=== PATIENT | female | born 1965 | race Caucasian/White ===

== ENCOUNTER 2021-02-14 14:41 | Inpatient (IN) | payer BC, OTHER ==
--- NOTE | 2021-02-14 15:03 | EDM.PDOC ---
ED HPI GENERAL MEDICAL PROBLEM - General Chief Complaint: Cardiovascular Problem Stated Complaint: HEART RACING Time Seen by Provider: 02/14/21 14:52 Source of Information: Reports: Patient, RN Notes Reviewed - History of Present Illness INITIAL COMMENTS - FREE TEXT/NARRATIVE: 55 yr old female comes in with palpitations, rapid heart rate, recurrent a fib. 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 Mild dizziness standing. No chest pain other than the discomfort of the noticeable palpitations. Not currently on blood thinners. Has not recently been ill. - Related Data Allergies Allergy/AdvReac Type Severity Reaction Status Date / Time No Known Allergies Allergy Verified 02/14/21 14:49 Home Meds: Home Meds Lisinopril [Prinivil] 2.5 mg PO DAILY 07/07/15 [History] Simvastatin 40 mg PO DAILY 07/07/15 [History] metFORMIN HCl [Metformin HCl ER] 750 mg PO BID 07/07/15 [History] Aspirin 325 mg PO DAILY 02/14/21 [History] Past Medical History Cardiovascular History: Reports: Afib, High Cholesterol Respiratory History: Reports: None Gastrointestinal History: Reports: None Genitourinary History: Reports: Other (See Below) Other Genitourinary History: TAKES LISINOPRIL DAILY FOR RENAL HEALTH 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: Reports: Musculoskeletal History: Reports: None Neurological History: Reports: None Psychiatric History: Reports: None Endocrine/Metabolic History: Reports: Diabetes, Type II Hematologic History: Reports: None Immunologic History: Reports: None Oncologic (Cancer) History: Reports: None Dermatologic History: Reports: None - Infectious Disease History Infectious Disease History: Reports: Chicken Pox, Measles, Mumps - Past Surgical History Head Surgeries/Procedures: Reports: None HEENT Surgical History: Reports: Tonsillectomy Respiratory Surgical History: Reports: None GI Surgical History: Reports: None Female Surgical History: Reports: Tubal Ligation Endocrine Surgical History: Reports: None Neurological Surgical History: Reports: None Musculoskeletal Surgical History: Reports: None Oncologic Surgical History: Reports: None Dermatological Surgical History: Reports: None Social & Family History - Tobacco Use Tobacco Use Status *Q: Never Tobacco User ED ROS GENERAL - Review of Systems Review Of Systems: See Below Constitutional: Denies: Fever, Chills HEENT: Reports: No Symptoms Respiratory: Denies: Shortness of Breath, Pleuritic Chest Pain, Cough Cardiovascular: Reports: Palpitations. Denies: Chest Pain GI/Abdominal: Denies: Abdominal Pain, Nausea, Vomiting Musculoskeletal: Reports: No Symptoms Skin: Reports: No Symptoms Neurological: Reports: Dizziness (mild) ED EXAM, GENERAL - Physical Exam Exam: See Below General Appearance: Alert, No Apparent Distress Throat/Mouth: Normal Inspection Head: Atraumatic Neck: Supple Respiratory/Chest: No Respiratory Distress, Lungs Clear, Normal Breath Sounds Cardiovascular: Tachycardia, Irregularly Irregular GI/Abdominal: Soft, Non-Tender Extremities: Normal Inspection. No: Pedal Edema, Leg Pain Neurological: Alert, Oriented, No Motor/Sensory Deficits Skin Exam: Warm, Dry, Normal Color Course - Vital Signs Last Recorded V/S: Last Vital Signs Temp 97.5 F 02/14/21 14:50 Pulse 170 H 02/14/21 14:50 Resp 18 02/14/21 14:50 BP 109/81 02/14/21 14:50 Pulse Ox 98 02/14/21 14:50 - Orders/Labs/Meds Orders: Active Orders 24 hr Category Date Time Status Peripheral IV Care [RC] . DIRECTED Care 02/14/21 15:09 Active CORONAVIRUS COVID-19 BRENDAN [MOLEC] Stat Lab 02/14/21 14:49 Received Diltiazem [Cardizem] 100 mg Med 02/14/21 16:15 Active Sodium Chloride 0.9% [Normal Saline AdvBag] 100 ml IV TITRATE Sodium Chloride 0.9% [Normal Saline] 1,000 ml Med 02/14/21 16:15 Active IV ONETIME Sodium Chloride 0.9% [Saline Flush] Med 02/14/21 15:09 Active 10 ml FLUSH ASDIRECTED PRN Peripheral IV Insertion Adult [OM.PC] Stat Oth 02/14/21 15:09 Ordered Medication Orders Sodium Chloride (Normal Saline) 1,000 mls @ 999 mls/hr IV ONETIME BERTA Last Admin: 02/14/21 16:26 Dose: 999 mls/hr Documented by: ROSEY Diltiazem HCl 100 mg/ Sodium (Chloride) 100 mls @ 5 mls/hr IV TITRATE BERTA; Protocol Last Admin: 02/14/21 16:25 Dose: 5 mg/hr, 5 mls/hr Documented by: ROSEY Sodium Chloride (Sodium Chloride 0.9% 10 Ml Syringe) 10 ml FLUSH ASDIRECTED PRN PRN Reason: Keep Vein Open Last Admin: 02/14/21 15:17 Dose: 10 ml Documented by: ROSEY Labs: Laboratory Tests 02/14/21 02/14/21 Range/Units 14:50 14:50 WBC 9.03 (3.98-10.04) K/mm3 RBC 4.59 (3.98-5.22) M/mm3 Hgb 14.5 (11.2-15.7) gm/dl Hct 43.5 (34.1-44.9) % MCV 94.8 (79.4-94.8) fl MCH 31.6 (25.6-32.2) pg MCHC 33.3 (32.2-35.5) g/dl RDW Std Deviation 44.8 (36.4-46.3) fL Plt Count 306 (182-369) K/mm3 MPV 11.9 (9.4-12.3) fl Neut % (Auto) 54.2 (34.0-71.1) % Lymph % (Auto) 37.3 (19.3-51.7) % [place] % (Auto) 7.3 (4.7-12.5) % Eos % (Auto) 0.9 (0.7-5.8) Baso % (Auto) 0.2 (0.1-1.2) % Neut # (Auto) 4.89 (1.56-6.13) K/mm3 Lymph # (Auto) 3.37 (1.18-3.74) K/mm3 [place] # (Auto) 0.66 H (0.24-0.36) K/mm3 Eos # (Auto) 0.08 (0.04-0.36) K/mm3 Baso # (Auto) 0.02 (0.01-0.08) K/mm3 Sodium 138 (136-145) mEq/L Potassium 3.6 (3.5-5.1) mEq/L Chloride 101 (98-107) mEq/L Carbon Dioxide 23 (21-32) mEq/L Anion Gap 17.6 H (5-15) BUN 15 (7-18) mg/dL Creatinine 1.2 H (0.55-1.02) mg/dL Est Cr Clr Drug Dosing 46.54 mL/min Estimated GFR (MDRD) 46 (>60) mL/min BUN/Creatinine Ratio 12.5 L (14-18) Glucose 211 H (70-99) mg/dL Calcium 9.5 (8.5-10.1) mg/dL Total Bilirubin 0.4 (0.2-1.0) mg/dL AST 18 (15-37) U/L ALT 22 (14-59) U/L Alkaline Phosphatase 68 (46-116) U/L Total Protein 8.3 H (6.4-8.2) g/dl Albumin 4.3 (3.4-5.0) g/dl Globulin 4.0 gm/dL Albumin/Globulin Ratio 1.1 (1-2) Meds: Medications Generic Name Dose Route Start Last Admin Trade Name Freq PRN Reason Stop Dose Admin Sodium Chloride 1,000 mls @ 999 mls/hr 02/14/21 16:15 02/14/21 16:26 Normal Saline IV 999 mls/hr ONETIME BERTA Administration Diltiazem HCl 100 mg/ Sodium 100 mls @ 5 mls/hr 02/14/21 16:15 02/14/21 16:25 Chloride IV 5 mg/hr TITRATE BERTA 5 mls/hr Administration Protocol 5 MG/HR Sodium Chloride 10 ml 02/14/21 15:09 02/14/21 15:17 Sodium Chloride 0.9% 10 Ml Syringe FLUSH 10 ml ASDIRECTED PRN Administration Keep Vein Open Discontinued Medications Generic Name Dose Route Start Last Admin Trade Name Freq PRN Reason Stop Dose Admin Diltiazem HCl 20 mg 02/14/21 15:10 02/14/21 15:15 Diltiazem 50 Mg/10 Ml Sdv IVPUSH 02/14/21 15:11 20 mg ONETIME ONE Administration Diltiazem HCl 10 mg 02/14/21 16:11 02/14/21 16:26 Diltiazem 50 Mg/10 Ml Sdv IVPUSH 02/14/21 16:12 10 mg ONETIME ONE Administration - Re-Assessments/Exams Free Text/Narrative Re-Assessment/Exam: 02/14/21 17:33. rate has slowed to the 110 to 125 rate after 30 mg diltiazem IV, pt now on diltiazem drip. CXR is normal. anion gap mildly elevated. Have ordered 1 liter LR. Pt will be admitted for further treatment. Departure - Departure Time of Disposition: 17:30 Disposition: Admitted As Inpatient 64 Condition: Fair Clinical Impression: Atrial fibrillation with RVR Referrals: PCP,Not In Area [Primary Care Provider] - Forms: ED Department Discharge Sepsis Event Note (ED) - Evaluation Sepsis Screening Result: No Definite Risk - Focused Exam Vital Signs: Vital Signs Temp Pulse Resp BP Pulse Ox 02/14/21 14:50 97.5 F 170 H 18 109/81 98 ED Communication - Discussed Case With (1) Discussed Case With (1): Admitting Provider (Dr Johnson, decision to admit at about 17:30) - My Orders Last 24 Hours: My Active Orders 02/14/21 14:49 CORONAVIRUS COVID-19 BRENDAN [MOLEC] Stat 02/14/21 15:09 Peripheral IV Care [RC] . DIRECTED Sodium Chloride 0.9% [Saline Flush] 10 ml FLUSH ASDIRECTED PRN Peripheral IV Insertion Adult [OM.PC] Stat 02/14/21 16:15 Diltiazem [Cardizem] 100 mg Sodium Chloride 0.9% [Normal Saline AdvBag] 100 ml IV TITRATE Sodium Chloride 0.9% [Normal Saline] 1,000 ml IV ONETIME - Assessment/Plan Last 24 Hours: My Active Orders 02/14/21 14:49 CORONAVIRUS COVID-19 BRENDAN [MOLEC] Stat 02/14/21 15:09 Peripheral IV Care [RC] . DIRECTED Sodium Chloride 0.9% [Saline Flush] 10 ml FLUSH ASDIRECTED PRN Peripheral IV Insertion Adult [OM.PC] Stat 02/14/21 16:15 Diltiazem [Cardizem] 100 mg Sodium Chloride 0.9% [Normal Saline AdvBag] 100 ml IV TITRATE Sodium Chloride 0.9% [Normal Saline] 1,000 ml IV ONETIME
[2021-02-14] MEDS ORDERED: Sodium Chloride 0.9% 10 ML Syringe FLUSH PRN (15:09)
[2021-02-14] MEDS ORDERED: Diltiazem 50 MG/10 ML SDV IVPUSH ONE ×2 (15:10→16:11)
[2021-02-14] MEDS ORDERED: Sodium Chloride 0.9% 1,000 ML IV SCH (16:15)
[2021-02-14] MEDS ORDERED: Diltiazem 100 MG in Sodium Chloride 0.9% 100 ML IV SCH (16:15)
--- NOTE | 2021-02-14 17:01 | CR ---
Chest: Portable view of the chest was obtained. Comparison: No prior chest imaging is available. Heart size and mediastinum are within normal limits. Minimal reticulonodular appearance is seen within both sides of the chest which is most likely chronic. Degenerative change is scattered within the spine with disc space narrowing and endplate spurring. Mild scoliosis is also noted. Impression: 1. Findings as described above. 2. Nothing acute is definitely appreciated. Diagnostic code #2
--- NOTE | 2021-02-14 17:48 | PCM.HP.2 ---
H&P History of Present Illness - General Date of Service: 02/14/21 Admit Problem/Dx: Atrial fibrillation with RVR, on Cardizem drip. Source of Information: Patient History Limitations: Reports: No Limitations - History of Present Illness Initial Comments - Free Text/Narative: The patient is a 55-year-old lady who had presented to the emergency department after 1 week of atrial fibrillation with RVR. The patient has had this in the past and she says it usually goes away. This time it has not. The patient has had some dizziness and lightheadedness while in the emergency department. Also she came in because she was having some pain in her left arm which is now resolved. The patient has been taking lisinopril for renal protection due to her diabetes and daily aspirin for antiplatelet therapy. Other than the aspirin she has not been taking any blood thinners or other anticoagulation. She is no other complaints currently. She has denied any pain. No nausea or vomiting. Onset of Symptoms: Reports: Gradual Duration of Symptoms: Reports: Week(s): Location: Reports: Chest Quality: Reports: Ache Improves with: Reports: Rest Worsens with: Reports: Movement Associated Symptoms: Reports: No Other Symptoms - Related Data Allergies/Adverse Reactions: Allergies Allergy/AdvReac Type Severity Reaction Status Date / Time No Known Allergies Allergy Verified 02/14/21 14:49 Home Medications: Home Meds Lisinopril [Prinivil] 2.5 mg PO DAILY 07/07/15 [History] Simvastatin 40 mg PO DAILY 07/07/15 [History] metFORMIN HCl [Metformin HCl ER] 750 mg PO BID 07/07/15 [History] Aspirin 325 mg PO DAILY 02/14/21 [History] Past Medical History HEENT History: Reports: None Cardiovascular History: Reports: Afib, High Cholesterol Respiratory History: Reports: None Gastrointestinal History: Reports: None Genitourinary History: Reports: Other (See Below) Other Genitourinary History: TAKES 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 DAILY FOR RENAL HEALTH 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: Musculoskeletal History: Reports: None Neurological History: Reports: None Psychiatric History: Reports: None Endocrine/Metabolic History: Reports: Diabetes, Type II Hematologic History: Reports: None Immunologic History: Reports: None Oncologic (Cancer) History: Reports: None Dermatologic History: Reports: None - Infectious Disease History Infectious Disease History: Reports: Chicken Pox, Measles, Mumps - Past Surgical History Head Surgeries/Procedures: Reports: None HEENT Surgical History: Reports: Tonsillectomy Respiratory Surgical History: Reports: None GI Surgical History: Reports: None Female Surgical History: Reports: Tubal Ligation Endocrine Surgical History: Reports: None Neurological Surgical History: Reports: None Musculoskeletal Surgical History: Reports: None Oncologic Surgical History: Reports: None Dermatological Surgical History: Reports: None Social & Family History - Tobacco Use Tobacco Use Status *Q: Never Tobacco User - Caffeine Use Caffeine Use: Reports: Coffee - Living Situation & Occupation Living situation: Reports: Single, with Family Occupation: Employed H&P Review of Systems - Review of Systems: Review Of Systems: See Below General: Reports: Weakness HEENT: Reports: No Symptoms Pulmonary: Reports: No Symptoms Cardiovascular: Reports: Palpitations, Dyspnea on Exertion Gastrointestinal: Reports: No Symptoms Genitourinary: Reports: No Symptoms Musculoskeletal: Reports: No Symptoms Skin: Reports: No Symptoms Psychiatric: Reports: No Symptoms Neurological: Reports: No Symptoms Hematologic/Lymphatic: Reports: No Symptoms Immunologic: Reports: No Symptoms Exam - Exam Exam: See Below - Vital Signs Vital Signs: Last Vital Signs Temp 36.4 C 02/14/21 14:50 Pulse 170 H 02/14/21 14:50 Resp 18 02/14/21 14:50 BP 109/81 02/14/21 14:50 Pulse Ox 98 02/14/21 14:50 Weight: 89.811 kg - Exam Quality Assessment: Supplemental Oxygen, DVT Prophylaxis General: Alert, Oriented, Cooperative HEENT: Conjunctiva Clear, EACs Clear, EOMI, Mucosa Moist & [place], PERRLA Neck: Supple, Trachea Midline Lungs: Clear to Auscultation, Normal Respiratory Effort Cardiovascular: Irregular Rhythm, Tachycardia GI/Abdominal Exam: Normal Bowel Sounds, Soft, Non-Tender, No Distention (Female) Exam: Deferred Rectal (Female) Exam: Deferred Back Exam: Normal Inspection, Full Range of Motion Extremities: Normal Inspection, Pedal Edema (+1 pitting) Skin: Warm, Dry, Intact Neurological: Cranial Nerves Intact, Normal Gait, Normal Speech Neuro Extensive - Mental Status: Alert, Oriented x3 Psychiatric: Alert, Normal Affect, Normal Mood - Patient Data Lab Results Last 24 hrs: Laboratory Results - last 24 hr 02/14/21 02/14/21 Range/Units 14:50 14:50 WBC 9.03 (3.98-10.04) K/mm3 RBC 4.59 (3.98-5.22) M/mm3 Hgb 14.5 (11.2-15.7) gm/dl Hct 43.5 (34.1-44.9) % MCV 94.8 (79.4-94.8) fl MCH 31.6 (25.6-32.2) pg MCHC 33.3 (32.2-35.5) g/dl RDW Std Deviation 44.8 (36.4-46.3) fL Plt Count 306 (182-369) K/mm3 MPV 11.9 (9.4-12.3) fl Neut % (Auto) 54.2 (34.0-71.1) % Lymph % (Auto) 37.3 (19.3-51.7) % [place] % (Auto) 7.3 (4.7-12.5) % Eos % (Auto) 0.9 (0.7-5.8) Baso % (Auto) 0.2 (0.1-1.2) % Neut # (Auto) 4.89 (1.56-6.13) K/mm3 Lymph # (Auto) 3.37 (1.18-3.74) K/mm3 [place] # (Auto) 0.66 H (0.24-0.36) K/mm3 Eos # (Auto) 0.08 (0.04-0.36) K/mm3 Baso # (Auto) 0.02 (0.01-0.08) K/mm3 Sodium 138 (136-145) mEq/L Potassium 3.6 (3.5-5.1) mEq/L Chloride 101 (98-107) mEq/L Carbon Dioxide 23 (21-32) mEq/L Anion Gap 17.6 H (5-15) BUN 15 (7-18) mg/dL Creatinine 1.2 H (0.55-1.02) mg/dL Est Cr Clr Drug Dosing 46.54 mL/min Estimated GFR (MDRD) 46 (>60) mL/min BUN/Creatinine Ratio 12.5 L (14-18) Glucose 211 H (70-99) mg/dL Calcium 9.5 (8.5-10.1) mg/dL Total Bilirubin 0.4 (0.2-1.0) mg/dL AST 18 (15-37) U/L ALT 22 (14-59) U/L Alkaline Phosphatase 68 (46-116) U/L Total Protein 8.3 H (6.4-8.2) g/dl Albumin 4.3 (3.4-5.0) g/dl Globulin 4.0 gm/dL Albumin/Globulin Ratio 1.1 (1-2) Result Diagrams: 02/14/21 14:50 02/14/21 14:50 Sepsis Event Note - Evaluation Sepsis Screening Result: No Definite Risk - Focused Exam Vital Signs: Vital Signs Temp Pulse Resp BP Pulse Ox 02/14/21 14:50 36.4 C 170 H 18 109/81 98 - Problem List (1) Atrial fibrillation with RVR SNOMED Code(s): 002154430239136 ICD Code: I48.91 - UNSPECIFIED ATRIAL FIBRILLATION Status: Acute Priority: High Current Visit: Yes (2) Diabetes mellitus type 2 in obese SNOMED Code(s): 18838951 ICD Code: E11.69 - TYPE 2 DIABETES MELLITUS WITH OTHER SPECIFIED COMPL ICATION; E66.9 - OBESITY, UNSPECIFIED Status: Chronic Priority: Medium Current Visit: Yes Problem List Initiated/Reviewed/Updated: Yes Orders Last 24hrs: Active Orders 24 hr Category Date Time Status Peripheral IV Care [RC] . DIRECTED Care 02/14/21 15:09 Active CORONAVIRUS COVID-19 BRENDAN [MOLEC] Stat Lab 02/14/21 14:49 Received Diltiazem [Cardizem] 100 mg Med 02/14/21 16:15 Active Sodium Chloride 0.9% [Normal Saline AdvBag] 100 ml IV TITRATE Sodium Chloride 0.9% [Normal Saline] 1,000 ml Med 02/14/21 16:15 Active IV ONETIME Sodium Chloride 0.9% [Saline Flush] Med 02/14/21 15:09 Active 10 ml FLUSH ASDIRECTED PRN Peripheral IV Insertion Adult [OM.PC] Stat Oth 02/14/21 15:09 Ordered Medication Orders Sodium Chloride (Normal Saline) 1,000 mls @ 999 mls/hr IV ONETIME BERTA Last Admin: 02/14/21 16:26 Dose: 999 mls/hr Documented by: ROSEY Diltiazem HCl 100 mg/ Sodium (Chloride) 100 mls @ 5 mls/hr IV TITRATE BERTA; Protocol Last Admin: 02/14/21 16:25 Dose: 5 mg/hr, 5 mls/hr Documented by: ROSEY Sodium Chloride (Sodium Chloride 0.9% 10 Ml Syringe) 10 ml FLUSH ASDIRECTED PRN PRN Reason: Keep Vein Open Last Admin: 02/14/21 15:17 Dose: 10 ml Documented by: ROSEY Assessment/Plan Comment:: The patient is an otherwise healthy 55-year-old lady who had been admitted to acute hospitalization due to A. fib with RVR. The patient has been placed in intensive care unit. I have ordered a 2D echocardiogram. The patient will continue on Cardizem drip and titrated to keep her pulse rate around 100 bpm. I have ordered digoxin with loading dose of 250 mcg if needed for rate control. The patient will have a diabetic diet as tolerated. She has been restarted on her Glucophage. The patient will also have insulin sliding scale low-dose as necessary for glycemic control. The patient is currently anticoagulated with Eliquis at 10 mg p.o. twice daily. The patient also has been encouraged to ambulate. I explained to the patient that she will likely need to be on atrial fibrillation as this does sound like paroxysmal atrial fibrillation as opposed to persistent. During the patient's last episode of A. fib with RVR the patient spontaneously converted. The patient's sister also has a medical history of atrial fibrillation with ablation surgery. She will need to follow-up with cardiology upon discharge. - Mortality Measure Prognosis:: Good
[2021-02-14] MEDS ORDERED: Docusate Sodium 100 MG Cap PO PRN (17:51)
[2021-02-14] MEDS ORDERED: Acetaminophen 325 MG Tab PO PRN (17:51)
[2021-02-14] MEDS ORDERED: Ondansetron 4 MG Tab.DIS PO PRN (17:51)
[2021-02-14] MEDS ORDERED: Temazepam 15 MG Cap PO PRN (17:51)
[2021-02-14] MEDS ORDERED: oxyCODONE 5 MG Tab PO PRN (17:51)
[2021-02-14] MEDS ORDERED: Digoxin 500 MCG/2 ML Amp IVPUSH SCH (18:00)
[2021-02-14] MEDS: Insulin Regular, Human 100 Units/ML 3 ML Vial SUBCUT SCH (19:05)
[2021-02-14] MEDS: metFORMIN 500 MG Tab PO SCH (19:09)
[2021-02-14] MEDS: Apixaban 5 MG Tab PO SCH ×2 (19:10→20:10)
[2021-02-14] MEDS: Simvastatin 40 MG Tab PO SCH (20:10)
[2021-02-14] MEDS ORDERED: Digoxin 500 MCG/2 ML Amp IVPUSH ONE (23:00)
[2021-02-15] MEDS: metFORMIN 500 MG Tab PO SCH (07:29)
--- NOTE | 2021-02-15 08:08 | PCM.EKG ---
#1 Interpretation EKG Date: 02/14/21 Time: 19:09 Rhythm: NSR Rate (Beats/Min): 74 [place]: Normal P-Wave: Present QRS: Normal ST-T: Normal QT: Normal Comparison: Change From Previous EKG EKG Interpretation Comments: Prior EKG was atrial fibrillation with RVR.
[2021-02-15] MEDS: Insulin Regular, Human 100 Units/ML 3 ML Vial SUBCUT SCH (08:17)
[2021-02-15] MEDS: Simvastatin 40 MG Tab PO SCH (08:17)
[2021-02-15] MEDS ORDERED: Apixaban 5 MG Tab PO SCH (09:00)
[2021-02-15] MEDS ORDERED: Lisinopril 2.5 MG Tab PO SCH (09:00)
[2021-02-15] MEDS ORDERED: Aspirin 325 MG Tab.EC PO SCH (09:00)
--- NOTE | 2021-02-15 09:41 | PCM.DCSUM1 ---
Discharge Summary - Hospital Course Diagnosis: Stroke: No - Discharge Data Discharge Date: 02/15/21 Discharge Disposition: Home, Self-Care 01 Condition: Good - Referral to Home Health Primary Care Physician: Danisha Carlos MD - Discharge Diagnosis/Problem(s) (1) Atrial fibrillation with RVR SNOMED Code(s): 973388080961746 ICD Code: I48.91 - UNSPECIFIED ATRIAL FIBRILLATION Status: Resolved Priority: High (2) Diabetes mellitus type 2 in obese SNOMED Code(s): 85696898 ICD Code: E11.69 - TYPE 2 DIABETES MELLITUS WITH OTHER SPECIFIED COMPLICATION; E66.9 - OBESITY, UNSPECIFIED Status: Chronic Priority: Medium - Patient Summary/Data Hospital Course: The patient is a 55-year-old lady who had been admitted to the intensive care unit under Cardizem drip for atrial fibrillation with RVR. The patient had tolerated the Cardizem well. Her rate was controlled down to 100-110. This was from the previous high of 160. It was reported upon admission that the patient has had episodes of A. fib which come and go. Again, the patient's sister also had ablation therapy for her chronic atrial fibrillation. The patient while on monitor in the intensive care unit on Cardizem drip spontaneously reverted to normal sinus rhythm and an EKG was obtained and interpreted in chart. Digoxin have been ordered but was not needed for her. Due to the probability of the patient has paroxysmal atrial fibrillation she was also started on Eliquis 5 mg p.o. twice daily. The patient should have a cardiology appointment to follow-up with this to determine if the Eliquis would still be needed. A prescription was given for this. The patient also had been given low-dose diltiazem 120 mg p.o. daily. To help with atrial fibrillation with RVR. The patient also had a 2D echocardiogram which was obtained while the patient is in normal sinus rhythm. Her left ventricular ejection fraction was noted to be 60 to 65% with a normal pattern of LV diastolic filling. She had a normal right ventricular systolic function. Aortic valve is noted to be tricuspid. She also had trace mitral and tricuspid regurgitation with no regional wall motion abnormalities. The patient had remained on room air and her saturations were between 96 and 100%. The patient has been tolerating her diet. She has been recommended to continue with her diabetic diet as tolerated. The patient also will have activity as tolerated. She has been hemodynamically stable and has been recommended for discharge with the recommendations listed above. - Patient Instructions Diet: Usual Diet as Tolerated, Diabetic Diet Activity: As Tolerated - Discharge Plan *PRESCRIPTION DRUG MONITORING PROGRAM REVIEWED*: Not Applicable *COPY OF PRESCRIPTION DRUG MONITORING REPORT IN PATIENT ANNIKA: Not Applicable Prescriptions/Med Rec: Diltiazem [Cardizem CD] 120 mg PO DAILY #30 cap.er Apixaban [Eliquis] 5 mg PO BID #60 tablet Home Medications: Home Meds Lisinopril [Prinivil] 2.5 mg PO DAILY 07/07/15 [History] Simvastatin 40 mg PO DAILY 07/07/15 [History] metFORMIN HCl [Metformin HCl ER] 750 mg PO BID 07/07/15 [History] Aspirin 325 mg PO DAILY 02/14/21 [History] Apixaban [Eliquis] 5 mg PO BID #60 tablet 02/15/21 [Rx] Diltiazem [Cardizem CD] 120 mg PO DAILY #30 cap.er 02/15/21 [Rx] Oxygen Therapy Mode: Room Air Forms: ED Department Discharge Referrals: Danisha Carlos MD [Primary Care Provider] - 02/23/21 10:15 am Daniel Ruiz MD [Ordering Only Provider] - 02/24/21 1:30 pm (This is your cardiology appt. In [place] [facility] time. Please arrive at 1:15 to check in) - Discharge Summary/Plan Comment DC Time >30 min.: Yes Total # of Minutes for Discharge Time: 35 - General Info Date of Service: 02/15/21 Admission Dx/Problem (Free Text: Atrial fibrillation with RVR, on Cardizem drip. Subjective Update: The patient is a 55-year-old lady who was admitted to acute intensive care unit isolation for A. fib with RVR. The patient had been on Cardizem drip. This was discontinued when she reverted to normal sinus rhythm. She is doing well with no complaints. She feels like she can safely go home. Functional Status: Reports: Pain Controlled, Tolerating Diet - Review of Systems General: Reports: No Symptoms HEENT: Reports: No Symptoms Pulmonary: Reports: No Symptoms Cardiovascular: Reports: No Symptoms Gastrointestinal: Reports: No Symptoms Genitourinary: Reports: No Symptoms Musculoskeletal: Reports: No Symptoms Skin: Reports: No Symptoms Neurological: Reports: No Symptoms Psychiatric: Reports: No Symptoms - Patient Data Vitals - Most Recent: Last Vital Signs Temp 35.9 C L 02/15/21 07:27 Pulse 72 02/15/21 07:27 Resp 16 02/15/21 07:27 BP 105/73 02/15/21 08:17 Pulse Ox 100 02/15/21 07:27 Weight - Most Recent: 90.31 kg I&O - Last 24 hours: Intake & Output 02/14/21 02/15/21 02/15/21 22:59 06:59 14:59 Intake Total 550 Output Total 500 600 Balance -500 -50 Lab Results - Last 24 hrs: Laboratory Results - last 24 hr 02/14/21 02/14/21 02/14/21 Range/Units 14:49 14:50 14:50 WBC 9.03 (3.98-10.04) K/mm3 RBC 4.59 (3.98-5.22) M/mm3 Hgb 14.5 (11.2-15.7) gm/dl Hct 43.5 (34.1-44.9) % MCV 94.8 (79.4-94.8) fl MCH 31.6 (25.6-32.2) pg MCHC 33.3 (32.2-35.5) g/dl RDW Std Deviation 44.8 (36.4-46.3) fL Plt Count 306 (182-369) K/mm3 MPV 11.9 (9.4-12.3) fl Neut % (Auto) 54.2 (34.0-71.1) % Lymph % (Auto) 37.3 (19.3-51.7) % [place] % (Auto) 7.3 (4.7-12.5) % Eos % (Auto) 0.9 (0.7-5.8) Baso % (Auto) 0.2 (0.1-1.2) % Neut # (Auto) 4.89 (1.56-6.13) K/mm3 Lymph # (Auto) 3.37 (1.18-3.74) K/mm3 [place] # (Auto) 0.66 H (0.24-0.36) K/mm3 Eos # (Auto) 0.08 (0.04-0.36) K/mm3 Baso # (Auto) 0.02 (0.01-0.08) K/mm3 Sodium 138 (136-145) mEq/L Potassium 3.6 (3.5-5.1) mEq/L Chloride 101 (98-107) mEq/L Carbon Dioxide 23 (21-32) mEq/L Anion Gap 17.6 H (5-15) BUN 15 (7-18) mg/dL Creatinine 1.2 H (0.55-1.02) mg/dL Est Cr Clr Drug Dosing 46.54 mL/min Estimated GFR (MDRD) 46 (>60) mL/min BUN/Creatinine Ratio 12.5 L (14-18) Glucose 211 H (70-99) mg/dL POC Glucose (70-99) mg/dL Calcium 9.5 (8.5-10.1) mg/dL Total Bilirubin 0.4 (0.2-1.0) mg/dL AST 18 (15-37) U/L ALT 22 (14-59) U/L Alkaline Phosphatase 68 (46-116) U/L Total Protein 8.3 H (6.4-8.2) g/dl Albumin 4.3 (3.4-5.0) g/dl Globulin 4.0 gm/dL Albumin/Globulin Ratio 1.1 (1-2) Digoxin (0.9-2.0) ng/mL SARS-CoV-2 RNA ([facility]) Negative (NEGATIVE) 02/14/21 02/15/21 02/15/21 Range/Units 20:04 05:00 06:40 WBC (3.98-10.04) K/mm3 RBC (3.98-5.22) M/mm3 Hgb (11.2-15.7) gm/dl Hct (34.1-44.9) % MCV (79.4-94.8) fl MCH (25.6-32.2) pg MCHC (32.2-35.5) g/dl RDW Std Deviation (36.4-46.3) fL Plt Count (182-369) K/mm3 MPV (9.4-12.3) fl Neut % (Auto) (34.0-71.1) % Lymph % (Auto) (19.3-51.7) % [place] % (Auto) (4.7-12.5) % Eos % (Auto) (0.7-5.8) Baso % (Auto) (0.1-1.2) % Neut # (Auto) (1.56-6.13) K/mm3 Lymph # (Auto) (1.18-3.74) K/mm3 [place] # (Auto) (0.24-0.36) K/mm3 Eos # (Auto) (0.04-0.36) K/mm3 Baso # (Auto) (0.01-0.08) K/mm3 Sodium (136-145) mEq/L Potassium (3.5-5.1) mEq/L Chloride (98-107) mEq/L Carbon Dioxide (21-32) mEq/L Anion Gap (5-15) BUN (7-18) mg/dL Creatinine (0.55-1.02) mg/dL Est Cr Clr Drug Dosing mL/min Estimated GFR (MDRD) (>60) mL/min BUN/Creatinine Ratio (14-18) Glucose (70-99) mg/dL POC Glucose 145 H 144 H (70-99) mg/dL Calcium (8.5-10.1) mg/dL Total Bilirubin (0.2-1.0) mg/dL AST (15-37) U/L ALT (14-59) U/L Alkaline Phosphatase (46-116) U/L Total Protein (6.4-8.2) g/dl Albumin (3.4-5.0) g/dl Globulin gm/dL Albumin/Globulin Ratio (1-2) Digoxin < 0.2 L (0.9-2.0) ng/mL SARS-CoV-2 RNA (BRENDAN) (NEGATIVE) Med Orders - Current: Current Medications Acetaminophen (Acetaminophen 325 Mg Tab) 650 mg PO Q4H PRN PRN Reason: Pain (Mild 1-3)/fever Apixaban (Apixaban 5 Mg Tab) 5 mg PO BID [facility] Last Admin: 02/15/21 08:17 Dose: 5 mg Documented by: Aspirin (Aspirin 325 Mg Tab.Ec) 325 mg PO DAILY [facility] Last Admin: 02/15/21 08:17 Dose: 325 mg Documented by: Docusate Sodium (Docusate Sodium 100 Mg Cap) 100 mg PO BID PRN PRN Reason: Constipation Diltiazem HCl 100 mg/ Sodium (Chloride) 100 mls @ 5 mls/hr IV TITRATE [facility]; Protocol Last Titration: 02/14/21 19:31 Dose: 0 mg/hr, 0 mls/hr Documented by: Insulin Human Regular (Insulin Regular, Human 100 Units/Ml 3 Ml Vial) 0 unit SUBCUT TIDPC [facility]; Protocol Last Admin: 02/15/21 08:17 Dose: Not Given Documented by: Lisinopril (Lisinopril 2.5 Mg Tab) 2.5 mg PO DAILY [facility] Last Admin: 02/15/21 08:17 Dose: 2.5 mg Documented by: Metformin HCl (Metformin 500 Mg Tab) 750 mg PO BIDMEALS [facility] Last Admin: 02/15/21 07:29 Dose: 750 mg Documented by: Ondansetron HCl (Ondansetron 4 Mg Tab.Dis) 4 mg PO Q4H PRN PRN Reason: nausea, able to take PO Oxycodone HCl (Oxycodone 5 Mg Tab) 5 mg PO Q4H PRN PRN Reason: Pain (moderate 4-6) Simvastatin (Simvastatin 40 Mg Tab) 40 mg PO DAILY [facility] Last Admin: 02/15/21 08:17 Dose: 40 mg Documented by: Sodium Chloride (Sodium Chloride 0.9% 10 Ml Syringe) 10 ml FLUSH ASDIRECTED PRN PRN Reason: Keep Vein Open Last Admin: 02/14/21 15:17 Dose: 10 ml Documented by: Temazepam (Temazepam 15 Mg Cap) 15 mg PO BEDTIME PRN PRN Reason: Sleep Discontinued Medications Apixaban (Apixaban 5 Mg Tab) 10 mg PO BID [facility] Last Admin: 02/14/21 20:10 Dose: Not Given Documented by: Digoxin (Digoxin 500 Mcg/2 Ml Amp) 250 mcg IVPUSH ONETIME ONE Stop: 02/14/21 23:01 Digoxin (Digoxin 500 Mcg/2 Ml Amp) 250 mcg IVPUSH Q6H [facility] Stop: 02/15/21 00:01 Last Admin: 02/14/21 19:05 Dose: Not Given Documented by: Diltiazem HCl (Diltiazem 50 Mg/10 Ml Sdv) 20 mg IVPUSH ONETIME ONE Stop: 02/14/21 15:11 Last Admin: 11/29/21 15:15 Dose: 20 mg Documented by: Diltiazem HCl (Diltiazem 50 Mg/10 Ml Sdv) 10 mg IVPUSH ONETIME ONE Stop: 02/14/21 16:12 Last Admin: 02/14/21 16:26 Dose: 10 mg Documented by: Sodium Chloride (Normal Saline) 1,000 mls @ 999 mls/hr IV ONETIME [facility] Last Admin: 02/14/21 16:26 Dose: 999 mls/hr Documented by: - Exam Quality Assessment: Reports: DVT Prophylaxis. Denies: Supplemental Oxygen General: Reports: Alert, Oriented, Cooperative, No Acute Distress HEENT: Reports: Pupils Equal, Pupils Reactive, EOMI, Mucous Membr. Moist/[place] Neck: Reports: Supple, Trachea Midline Lungs: Reports: Clear to Auscultation, Normal Respiratory Effort Cardiovascular: Reports: Regular Rate, Regular Rhythm, No Murmurs GI/Abdominal Exam: Normal Bowel Sounds, Soft, Non-Tender, No Distention (Female) Exam: Deferred Rectal (Female) Exam: Deferred Back Exam: Reports: Normal Inspection, Full Range of Motion Extremities: Normal Inspection, Normal Range of Motion, No Pedal Edema Skin: Reports: Warm, Dry, Intact Neurological: Reports: No New Focal Deficit, Normal Gait, Normal Speech Psy/Mental Status: Reports: Alert, Normal Affect, Normal Mood
[2021-02-15 09:51] VITALS: BP 111/78; PULSE 83
== END 2021-02-15 11:00 | disposition home or self-care (01) | DRG 310 ==
LOC: JD.ED 14:41 → JD.ICU 17:51 → JD.ED 18:11
PROVIDERS: ADMIT Internal Medicine; ATTEND Internal Medicine
DX: I48.0 Paroxysmal atrial fibrillation (principal); I08.1 Rheumatic disorders of both mitral and tricuspid valves; E11.69 Type 2 diabetes mellitus with other specified complication; E78.00 Pure hypercholesterolemia, unspecified; E66.9 Obesity, unspecified; Z20.822 Contact with and (suspected) exposure to COVID-19; Z79.84 Long term (current) use of oral hypoglycemic drugs; Z79.82 Long term (current) use of aspirin; Z98.51 Tubal ligation status; Z68.33 Body mass index [BMI] 33.0-33.9, adult
CPT/HCPCS: 36415; 71045; 71045-26; 80053; 80162; 82947; 85025; 93005; 93306; 96365; 96376; 99285-25; A9270-GY; J3490; J7030; U0002

== ENCOUNTER 2023-12-27 08:16 | Day surgery (SDC) | payer BC ==
[~2023-12-27 08:16] MED LIST: Lactated Ringers 1,000 ML IV SCH; Sodium Chloride 0.9% 10 ML Syringe FLUSH PRN; Sodium Chloride 0.9% 10 ML Syringe FLUSH SCH
[2023-12-27] MEDS: Lactated Ringers 1,000 ML IV SCH (08:45)
[2023-12-27] MEDS ORDERED: Sodium Chloride 0.9% 10 ML Syringe FLUSH SCH (09:00)
[2023-12-27] MEDS ORDERED: Lidocaine 1% PF 2 ML SDV ONE ×3 (09:14→09:45)
[2023-12-27] MEDS ORDERED: Lidocaine 1% 4 ML ONE (09:14)
[2023-12-27] MEDS ORDERED: Midazolam 1 MG/ML 2 ML SDV ONE (09:14)
[2023-12-27] MEDS ORDERED: Propofol 200 MG/20 ML SDV ONE ×3 (09:14)
[2023-12-27] MEDS ORDERED: Metoprolol Tartrate 5 MG/5 ML SDV ONE (09:23)
[2023-12-27 11:52] VITALS: BP 110/68; PULSE 74
== END 2023-12-27 11:05 | disposition home or self-care (01) ==
LOC: JD.SDS 08:16
PROVIDERS: ATTEND Surgery
DX: K57.30 Diverticulosis of large intestine without perforation or abscess without bleeding (principal); K64.1 Second degree hemorrhoids; E11.9 Type 2 diabetes mellitus without complications; I48.91 Unspecified atrial fibrillation; E78.00 Pure hypercholesterolemia, unspecified; Z79.01 Long term (current) use of anticoagulants
CPT/HCPCS: J2250; J2704; J3490; J7120

== ENCOUNTER 2024-11-18 07:43 | Day surgery (SDC) | payer OTHER ==
[2024-11-18 08:46] LABS: APPEARANCE,URINE CLEAR (Clear); GLUCOSE,URINE NEGATIVE (Negative); OCCULT BLOOD,URINE NEGATIVE (Negative)
[2024-11-18] MEDS ORDERED: Propofol 200 MG/20 ML SDV ONE (08:52)
[2024-11-18] MEDS ORDERED: Midazolam 1 MG/ML 2 ML SDV ONE (08:52)
[2024-11-18] MEDS ORDERED: fentaNYL 250 MCG/5 ML SDV ONE (08:53)
[2024-11-18] MEDS ORDERED: Ondansetron 4 MG/2 ML SDV ONE (09:45)
[2024-11-18] MEDS ORDERED: Dexamethasone 4 MG/ML 5 ML MDV ONE (09:45)
[2024-11-18] MEDS ORDERED: ePHEDrine 50 MG/ML SDV ONE (09:50)
[2024-11-18] MEDS ORDERED: Lactated Ringers 1,000 ML ONE (10:02)
[2024-11-18] MEDS: EPINEPHrine 1 MG/ML SDV ONE (10:20)
[2024-11-18] MEDS ORDERED: EPINEPHrine 1 MG/ML SDV ONE (10:22)
[2024-11-18] MEDS ORDERED: Glycopyrrolate 0.2 MG/ML 2 ML SDV ONE (10:42)
[2024-11-18] MEDS ORDERED: Ketorolac 30 MG/ML SDV ONE (11:09)
[2024-11-18] MEDS ORDERED: Ondansetron 4 MG/2 ML SDV IVPUSH PRN (11:32)
[2024-11-18] MEDS ORDERED: fentaNYL 100 MCG/2 ML SDV IVPUSH PRN (11:32)
[2024-11-18 15:26] VITALS: BP 109/76; PULSE 97
== END 2024-11-18 14:50 | disposition home or self-care (01) ==
LOC: JD.SDS 07:43
PROVIDERS: ATTEND Obstetrics & Gynecology
DX: N87.9 Dysplasia of cervix uteri, unspecified (principal); N72 Inflammatory disease of cervix uteri; N83.8 Other noninflammatory disorders of ovary, fallopian tube and broad ligament; N81.10 Cystocele, unspecified; N81.6 Rectocele; E78.00 Pure hypercholesterolemia, unspecified; E11.9 Type 2 diabetes mellitus without complications; I48.91 Unspecified atrial fibrillation; I10 Essential (primary) hypertension; Z79.01 Long term (current) use of anticoagulants; Z79.899 Other long term (current) drug therapy
CPT/HCPCS: 36415; 57240; 58552; 81003; 82947; 86850; 86900; 86901; J0169; J0665; J0690; J1100; J1596; J1885; J2003; J2250; J2405; J2704; J2710; J3010; J7120; 00944; J1171; J3490